=== PATIENT | female | born 1985 | race Caucasian/White ===

== ENCOUNTER 2020-03-23 06:00 | Inpatient (IN) | payer BC ==
[~2020-03-23 06:00] MED LIST: Citric Acid/Sodium Citrate Solution 30 ML Cup PO ONE; Lactated Ringers 1,000 ML IV SCH; Ondansetron 4 MG/2 ML SDV IVPUSH PRN; Tranexamic Acid 1,000 MG in Sodium Chloride 0.9% 100 ML IV PRN
[2020-03-23] MEDS: Lactated Ringers 1,000 ML IV SCH ×4 (06:30→21:23)
[2020-03-23] MEDS ORDERED: ceFAZolin 1 GM in Premix Bag 1 BAG IV SCH (07:00)
[2020-03-23] MEDS ORDERED: Oxytocin/Normal Saline 60 UNIT/1,000 ML BAG ONE (07:10)
[2020-03-23] MEDS: ceFAZolin 2 GM in Premix Bag 1 BAG IV ONE (07:17)
[2020-03-23] MEDS ORDERED: Carboprost Tromethamine 250 MCG/1 ML Amp IM PRN (07:47)
[2020-03-23] MEDS ORDERED: ePHEDrine 50 MG/ML SDV IVPUSH PRN (07:47)
[2020-03-23] MEDS ORDERED: Methylergonovine 0.2 MG/1 ML Amp IM PRN (07:47)
[2020-03-23] MEDS ORDERED: Misoprostol 400 MCG (4 X 100 MCG TAB) RECTAL PRN (07:47)
[2020-03-23] MEDS ORDERED: Acetaminophen 325 MG Tab PO PRN (07:47)
[2020-03-23] MEDS ORDERED: Naloxone 2 MG/2 ML Syringe IVPUSH PRN (07:47)
[2020-03-23] MEDS ORDERED: diphenhydrAMINE 50 MG/ML SDV IVPUSH PRN (07:47)
[2020-03-23] MEDS ORDERED: Tranexamic Acid 1,000 MG in Sodium Chloride 0.9% 100 ML IV PRN (07:47)
[2020-03-23] MEDS ORDERED: Measles, Mumps & Rubella Vaccine 0.5 ML SDV SUBCUT ONE (07:47)
--- NOTE | 2020-03-23 08:41 | OBOUT ---
DATE: 03/23/2020 INDICATION FOR NST: The patient with advanced maternal age at 39 weeks gestation, presents to the hospital for elective repeat section at term. This is routine preoperative evaluation. REPORT: Baseline heart rate 145 beats per minute. Overall, moderate beat- to-beat variability. A couple of accelerations are noted. Technically reactive NST. [place] shows contractions about every 3 minutes with some uterine irritability. The patient is not feeling the contractions. INTERPRETATION: Category 1 reassuring and reactive NST. [facility] /[id number]
[2020-03-23] MEDS ORDERED: Oxytocin/Normal Saline 30 UNIT/500 ML BAG IV SCH (08:53)
[2020-03-23] MEDS ORDERED: Oxytocin/Normal Saline 30 UNIT/500 ML BAG IV ONE (11:59)
[2020-03-23] MEDS: Ferrous Sulfate 325 MG Tab PO SCH (12:18)
[2020-03-23] MEDS: Prenatal Multivitamin with Calcium/Folic Acid/Iron Tab PO SCH (12:18)
[2020-03-23] MEDS: Simethicone 80 MG Tab.Chew PO SCH ×4 (12:18→20:54)
[2020-03-23] MEDS ORDERED: Metoclopramide 10 MG/2 ML SDV IVPUSH ONE (13:18)
[2020-03-23] MEDS ORDERED: Famotidine 20 MG/2 ML SDV IVPUSH ONE (13:19)
[2020-03-23] MEDS: Ketorolac 30 MG/ML SDV IVPUSH SCH ×2 (15:08→20:54)
--- NOTE | 2020-03-23 18:09 | OR ---
DATE: 03/23/2020 PROCEDURE PERFORMED: Repeat low transverse section. SURGEON: Dulce Bean MD. CASE LINER: Myla Stanford MD. PREPROCEDURE DIAGNOSES: 1. A 39 and 0/7 weeks' intrauterine based on a dating by intrauterine insemination. 2. History of section. 3. History of macrosomia, prior . 4. Advanced maternal age. 5. resulting from assisted reproductive technology. 6. Anemia of . 7. Rubella equivocal. 8. Morbid obesity. 9. Polycystic ovarian syndrome. POSTPROCEDURE DIAGNOSES: 1. A 39 and 0/7 weeks' intrauterine based on a dating by intrauterine insemination. 2. History of section. 3. History of macrosomia, prior . 4. Advanced maternal age. 5. resulting from assisted reproductive technology. 6. Anemia of . 7. Rubella equivocal. 8. Morbid obesity. 9. Polycystic ovarian syndrome. 10. Repeat low transverse section. 11. Delivery large for gestational age . BRIEF HISTORY: A 34-year-old female with the above-listed diagnoses presented to the hospital for planned elective repeat section at term. See admission history and physical for full details. Preprocedure diagnoses reflect her current risk factors and issues. care has been excellent. All of her other remaining tests were overall unremarkable and her preoperative hemoglobin was 11.3, platelets 119, and she was COVID rapid tested negative. CONSENT: Discussed with the patient and her indications, risks, benefits, and alternatives of primary low transverse section including but not limited to, injury to any large blood vessels, nerves, veins, internal organs and structures including but not limited to, uterus, ovaries, fallopian tubes, intestines, other adjacent structures, potential injury to the baby, potential for complications for mother and/or baby that would require transfer to a higher level of care and remote risk of , potential for bleeding to the point of requiring a blood transfusion as well as its inherent risks including transfusion reaction or contraction of blood-borne disease or illness such as HIV or hepatitis C. All of their questions were answered and consent forms were signed and can be found in the chart. PROCEDURE DETAILS: The patient taken to the operating room and spinal anesthesia obtained. She was placed in a dorsal supine position with leftward tilt and Kimbrough indwelling catheter placed. The abdomen was then prepped and draped in usual sterile fashion with suspenders to hold up the pannus. Incision made through the prior uterine scar and carried down through the underlying fatty tissue using sharp dissection as well as cautery and traction. The fascia was then identified and incised with cautery and extended bilaterally with cautery and blunt traction. Superior fascial edge grasped with Matthias's, tented up, and rectus muscles dissected off bluntly. Inferior fascial edge grasped with Matthias's, tented up, and rectus muscles dissected off bluntly and with cautery. Rectus muscles in the midline with blunt finger dissection and peritoneal cavity also entered with blunt finger dissection and extended with traction. Rolf retractor was then placed in usual fashion and uterus inspected. Baby confirmed vertex and incision site for low transverse uterine incision was selected on and made with scalpel and carried down until the amniotic sac was lightly nicked, and then the hysterotomy site developed with Taveras method. There was some difficulty getting baby's head to deliver up through the hysterotomy site. Therefore, vacuum assistance was used. Once baby was delivered, baby was dried, stimulated, and bulb suction performed, and 3- vessel umbilical cord was doubly clamped and cut. Baby taken to the warmer for further evaluation. Cord blood sample then obtained and placenta delivered by gentle cord traction and concomitant uterine massage, inspected and intact. Uterine cavity was cleared of all clots and debris with dry lap sponge. Hysterotomy site closed with a running lock stitch of 0 Vicryl in the usual fashion. There were 2 small areas of bleeding, controlled with a figure-of- eight suture to the maternal right side and a short running lock 3 stitches on the corner of the left side. This resulted in excellent hemostasis. The pericolic gutters were cleared of all clots and debris. The peritoneal layer was not closed in the interest of time. The uterine fascia was closed with a running stitch of 0 looped PDS in the usual fashion. Subcutaneous tissues irrigated, cleared of any clots and debris, and skin was closed with bernadette. The patient tolerated the procedure well and there were no complications. ESTIMATED BLOOD LOSS: 500 mL. URINE OUTPUT: 300 mL clear. FLUIDS: 1500 mL of crystalloids. FINDINGS: Total surgery was 27 minutes from skin to skin. Term female doing well. score 8 & 9. Weight 4060g, 8#15 oz. There were no complications. Of note, the patient's spinal anesthesia had been obtained and we were notified of a twin presenting with complete cervical dilatation and breech, and the OR was needed on an emergent basis. Therefore, mildly impacting the decision to not close the peritoneal layer and closed with bernadette rather than sutures, but at no point was the patient at risk. [facility] /[id number] RENÉE
[2020-03-23] MEDS ORDERED: Lactated Ringers 1,000 ML IV ONE (23:42)
[2020-03-24] MEDS: Lactated Ringers 1,000 ML IV SCH ×2 (00:21→06:10)
[2020-03-24] MEDS: Ketorolac 30 MG/ML SDV IVPUSH SCH (02:28)
[2020-03-24] MEDS ORDERED: Furosemide 40 MG/4 ML VIAL IVPUSH ONE (03:23)
--- NOTE | 2020-03-24 08:14 | PN ---
DATE: 03/24/2020 SUBJECTIVE: Postoperative day #1, status post repeat low transverse section, elective at term. The patient reports that she has been doing well. She was up and ambulating last night, passing flatus, tolerating a regular diet. No chest pain or shortness of breath. Bleeding has been minimal. Incisional pain has been controlled. She initially had good urine output that then diminished. The Kimbrough catheter was irrigated without return and she was given a dose of Lasix and since that time has had 850 mL in output. She is her baby and denies any other concerns or complaints at this time. OBJECTIVE: Vital Signs: Temperature is 97.6, pulse 74, blood pressure 120/62, respiratory rate of 20, O2 saturations 97% on room air. Heart: Regular without murmur. Lungs: Clear to auscultation bilaterally. Abdomen: Soft and nontender. Hypoactive bowel sounds are present. Incision site dressing is clean, dry, and intact. Extremities: INDIRA hose and SCDs are on. Edema is 2+. LABORATORY DATA: Hemoglobin is down to 9.5 from a previous 11.3, platelets are 177. ASSESSMENT: 1. Postop day #1, status post elective repeat section. 2. Delivered at 39 weeks' gestation. 3. Delivery of large for gestational age weighing over 4000 g. 4. Advanced maternal age. 5. Anemia of and blood loss. 6. Rubella equivocal. 7. Morbid obesity. 8. Polycystic ovarian syndrome. 9. Delivery macrosomic infant. PLAN: Continue routine postoperative cares and plan on discharge home on postoperative day #3. She will get her MMR booster prior to discharge and all of her questions have been answered. [facility] /[id number] RENÉE
[2020-03-24] MEDS: Sodium Chloride 0.9% 10 ML Syringe FLUSH PRN ×2 (08:15→21:40)
[2020-03-24] MEDS: Prenatal Multivitamin with Calcium/Folic Acid/Iron Tab PO SCH (08:16)
[2020-03-24] MEDS: Ferrous Sulfate 325 MG Tab PO SCH (08:17)
[2020-03-24] MEDS: Simethicone 80 MG Tab.Chew PO SCH ×4 (08:17→21:38)
[2020-03-24] MEDS: Ibuprofen 800 MG Tab PO PRN ×2 (13:05→21:48)
[2020-03-24] MEDS: Docusate Sodium 100 MG Cap PO PRN ×2 (13:05→21:38)
[2020-03-24] MEDS: Acetaminophen/oxyCODONE 325-5 MG Tab PO PRN ×3 (13:06→21:38)
[2020-03-24] MEDS: ceFAZolin 2 GM in Premix Bag 1 BAG IV ONE (14:55)
[2020-03-25] MEDS: Acetaminophen/oxyCODONE 325-5 MG Tab PO PRN ×3 (04:12→21:50)
[2020-03-25] MEDS ORDERED: Bisacodyl 10 MG Supp RECTAL PRN (07:25)
[2020-03-25] MEDS: Ferrous Sulfate 325 MG Tab PO SCH (08:03)
[2020-03-25] MEDS: Ibuprofen 800 MG Tab PO PRN ×2 (08:04→16:30)
[2020-03-25] MEDS: Sodium Chloride 0.9% 10 ML Syringe FLUSH PRN (08:06)
[2020-03-25] MEDS: Simethicone 80 MG Tab.Chew PO SCH ×4 (08:53→21:49)
[2020-03-25] MEDS: Polyethylene Glycol 3350 Powder 17 GM Packet PO SCH (08:54)
[2020-03-25] MEDS: Prenatal Multivitamin with Calcium/Folic Acid/Iron Tab PO SCH (08:54)
[2020-03-25] MEDS: Docusate Sodium 100 MG Cap PO PRN ×2 (09:01→21:49)
--- NOTE | 2020-03-25 10:48 | PN ---
DATE: 03/25/2020 SUBJECTIVE: Postoperative day #2. The patient has been doing well, ambulating, tolerating regular diet, voiding without difficulties, passing flatus, not yet had a bowel movement, but also does not feel like she needs to. There was concern about history of severe constipation issues after her last and she would like to get on some stool softeners and suppository sooner rather than later. No chest pain or shortness of breath. Tolerating regular diet. Bleeding has been well controlled. Pain is well controlled. She is bottle feeding her baby and she has no other concerns. OBJECTIVE: Vital Signs: Temperature is 97.3, pulse 64, blood pressure 121/69, respiratory rate of 20, and O2 saturations 97% on room air. Heart: Regular without murmur. Lungs: Clear to auscultation bilaterally. Abdomen: Soft. Positive bowel sounds in all 4 quadrants. Incision site is clean, dry, and intact with bernadette in place. No oozing or drainage. Extremities: 1+ edema bilaterally. No erythema or tenderness noted. ASSESSMENT: 1. Status post repeat low transverse section without complications. 2. Morbid obesity. 3. Delivery of a macrosomic female infant. 4. Anemia of and blood loss. 5. Rubella equivocal. PLAN: Continue routine postoperative cares. Anticipate discharge home tomorrow. We will ensure that she has received her MMR and will also get her started on some MiraLAX once daily and some p.r.n. Dulcolax suppositories. The patient's questions have been answered. [facility] /[id number]
[2020-03-25] MEDS ORDERED: ePHEDrine 50 MG/ML SDV IV ONE (16:54)
[2020-03-25] MEDS ORDERED: Lactated Ringers 1,000 ML IV ONE ×2 (16:54→16:56)
[2020-03-25] MEDS ORDERED: Ondansetron 4 MG/2 ML SDV IV ONE (16:54)
[2020-03-25] MEDS ORDERED: Dexamethasone 4 MG/ML SDV IV ONE (16:54)
[2020-03-25] MEDS ORDERED: Morphine PF 1 MG/ML Amp ONE (16:54)
[2020-03-25] MEDS ORDERED: Ketorolac 30 MG/ML SDV IVPUSH ONE ×2 (16:54→16:56)
[2020-03-25] MEDS ORDERED: Succinylcholine 200 MG/10 ML MDV IV ONE (16:56)
[2020-03-25] MEDS ORDERED: Oxytocin 10 Units/1 ML SDV IV ONE (16:56)
[2020-03-25] MEDS ORDERED: Propofol 200 MG/20 ML SDV IV ONE (16:56)
[2020-03-25] MEDS ORDERED: Carboprost Tromethamine 250 MCG/1 ML Amp IM ONE (16:56)
[2020-03-25] MEDS ORDERED: fentaNYL 100 MCG/2 ML SDV IV ONE (16:56)
[2020-03-26] MEDS: Ibuprofen 800 MG Tab PO PRN ×2 (00:35→09:02)
[2020-03-26] MEDS: Prenatal Multivitamin with Calcium/Folic Acid/Iron Tab PO SCH (09:01)
[2020-03-26] MEDS: Simethicone 80 MG Tab.Chew PO SCH (09:01)
[2020-03-26] MEDS: Docusate Sodium 100 MG Cap PO PRN (09:01)
[2020-03-26] MEDS: Ferrous Sulfate 325 MG Tab PO SCH (09:02)
[2020-03-26] MEDS: Polyethylene Glycol 3350 Powder 17 GM Packet PO SCH (09:03)
[2020-03-26 10:08] VITALS: BP 120/69; PULSE 75
--- NOTE | 2020-04-05 04:23 | DISCH ---
ADMITTING DIAGNOSES: 1. 39-0/7 weeks' intrauterine based on intrauterine insemination date. 2. 3, para 1-0-1-1. 3. High-risk . 4. History of spontaneous x1. 5. Obesity. 6. Blood type A positive, rubella equivocal, group B strep positive. 7. History of x1. 8. History of a child born with macrosomia. 9. Advanced maternal age. 10.Polycystic ovarian syndrome. 11.Anemia of . 12.Chronic constipation. DISCHARGE DIAGNOSES: 1. 39-0/7 weeks' intrauterine based on intrauterine insemination date. 2. 3, para 2-0-1-2. 3. High-risk . 4. History of spontaneous x1. 5. Obesity. 6. Blood type A positive, rubella equivocal, group B strep positive. 7. Status post #2. 8. Child born with macrosomia. 9. Advanced maternal age. 10.Polycystic ovarian syndrome. 11.Anemia of . 12.Chronic constipation. BRIEF HISTORY: A 34-year-old female with the above-listed diagnoses was brought into the hospital for planned repeat section at term. She had excellent care and there were no anticipated problems. See admission history and physical and operative report for full details. Surgery was performed without complications and the patient tolerated well. HOSPITAL COURSE: Has been good. She has been tolerating regular diet, ambulating. No chest pain or shortness of breath. Bleeding has been minimal. Pain has been well controlled. She is passing flatus, although she has not had a bowel movement yet. She does have concerns about constipation, which was quite severe after her last and wanted to start stool softeners sooner rather than later. Otherwise, she was prepared to go home on hospital day 3, and there were no contraindications. DISCHARGE CONDITION: Good. PHYSICAL EXAMINATION: Vital Signs: Temperature is 98.2, pulse 75, blood pressure 120/69, respiratory rate of 14, and O2 saturations 98% on room air. Heart: Regular without murmur. Lungs: Clear to auscultation bilaterally. Abdomen: Soft. Incision site is clean, dry, and intact. Uterus is firm and below the umbilicus. Extremities: 2+ pitting edema. No erythema or tenderness noted. LABORATORY DATA: Shows hemoglobin is down to 9.5 from a previous 11.3, platelets down to 177 from 191. DISPOSITION: Home with family. MEDICATIONS: 1. Percocet 5/325 one to two tablets every 4 to 6 hours as needed for pain. 2. Ibuprofen 800 mg every 8 hours as needed for pain. 3. Colace 100 mg twice daily. 4. Dulcolax suppositories 1 daily as needed for constipation. 5. vitamin 1 p.o. daily. FOLLOWUP: The patient will be seen in the office next week for staple removal and postoperative check. INSTRUCTIONS: The patient was advised lifting restrictions and reasons to return to the hospital or clinic should any problems arise, including but not limited to, fever, chills, foul-smelling drainage, discharge, wound dehiscence, or any other potential complications. Her questions were answered, and she is doing well. [facility] /[id number] RENÉE
== END 2020-03-26 12:05 | disposition home or self-care (01) | DRG 540 ==
LOC: DL.MS 06:00 → OBSVTOIN 08:29
PROVIDERS: ADMIT Family Medicine; ATTEND Family Medicine
PROC: 10D00Z1 Extraction of Products of Conception, Low, Open Approach (ICD-10-PCS; principal; 2020-03-23)
PROC: 4A1HXCZ Monitoring of Products of Conception, Cardiac Rate, External Approach (ICD-10-PCS; 2020-03-23)
DX: O34.211 Maternal care for low transverse scar from previous cesarean delivery (principal); O99.214 Obesity complicating childbirth; E66.01 Morbid (severe) obesity due to excess calories; O36.63X0 Maternal care for excessive fetal growth, third trimester, not applicable or unspecified; O99.02 Anemia complicating childbirth; D64.9 Anemia, unspecified; O09.813 Supervision of pregnancy resulting from assisted reproductive technology, third trimester; O99.284 Endocrine, nutritional and metabolic diseases complicating childbirth; E28.2 Polycystic ovarian syndrome; Z3A.39 39 weeks gestation of pregnancy; Z37.0 Single live birth; Z11.59 Encounter for screening for other viral diseases
CPT/HCPCS: 01961; 36415; 59025; 85025; 85027; 86850; 86900; 86901; 90471; 90707; A9270-GY; J0330; J0690; J1100; J1885; J1940; J2274; J2405; J2590; J2704; J2765; J3010; J3490; J7120; U0002